=== PATIENT | male | born 1950 | race Caucasian/White ===

== ENCOUNTER 2023-03-12 19:14 | Inpatient (IN) | payer MEDICARE, BC ==
[~2023-03-12] VITALS: Ht 188 cm; Wt 85.0 kg
[2023-03-12 19:41] LABS: Urine Epithelial Cast None Seen /hpf (<5)
[2023-03-12 19:55] LABS: Urine Bacteria FEW /hpf (None Seen); Urine Blood 2+ /uL (Negative); Urine Clarity Clear (Clear); Urine Color Yellow (Yellow); Urine Protein, UAD TRACE (Negative); Urine Specific Gravity 1.007 (1.001-1.035); Urine Urobilinogen Normal (Negative); Urine WBC 76 /hpf (0 - 3); Urine pH 6.5 (5.0-8.0)
[2023-03-12] MEDS ORDERED: CEFTRIAXONE SODIUM 2 GM in D5W 5% 100 ML IV ONE (20:15)
[2023-03-12 20:58] LABS: Basophils # (auto) 0 10 ^3/uL (0-0.2); Basophils % (auto) 0.2 % (0.0-2.0); Eosinophils # (auto) 0 10 ^3/uL (0-0.8); Eosinophils % (auto) 0.2 % (0.0-7.0); Hematocrit 36.5 % (41.0-53.0); Lymphocytes # (auto) 1.1 10 ^3/uL (0.4-5.4); Lymphocytes % (auto) 13.4 % (10.0-50.0); Mean Corpuscular Hemoglobin 29.1 pg (28.0-32.0); Mean Corpuscular Hgb Conc. 32.9 g/dL (32.0-36.0); Mean Corpuscular Volume 88.5 fL (80.0-100.0); Monocytes # (auto) 0.8 10 ^3/uL (0-1.3); Neutrophils # (auto) 6.5 10 ^3/uL (1.6-8.6); Neutrophils % (auto) 77.2 % (37.0-80.0); Red Blood Cells 4.13 10^6/uL (4.5-5.90); Red Cell Distribution Width 14.8 % (11.8-14.3); White Blood Cell 8.4 10^3/uL (4.4-10.8)
[2023-03-12 21:20] LABS: Alanine Aminotransferase 23 U/L (7-40); Albumin 3.2 g/dL (3.2-4.8); Alkaline Phosphatase 77 U/L (46-116); Anion Gap 4 (5-15); Aspartate Aminotransferase 25 U/L (13-40); BUN/Creatinine Ratio 18.8 (10.0-20.0); Bilirubin, Total 0.5 mg/dL (0.2-1.0); Blood Urea Nitrogen 9 mg/dL (9-23); Calcium 8.5 mg/dL (8.7-10.4); Carbon Dioxide 30 mmol/L (20-30); Chloride 98 mmol/L (98-107); Glucose 173 mg/dL (74-106); Lipase 27 U/L (12-53); Potassium 3.4 mmol/L (3.5-5.1); Sodium 132 mmol/L (136-145); Total Protein 6.2 g/dL (5.7-8.2)
[2023-03-12] MEDS ORDERED: SODIUM CHLORIDE 0.9% 1,000 ML IV ONE (23:30)
[2023-03-12] MEDS ORDERED: HYDROmorphone HCL 2 MG/ML VL/or syr IM ONE (23:30)
[2023-03-13] VITALS (7 sets, daily range): BP systolic 99–113; BP diastolic 64–72; PULSE 66–93; RESP 16–22; TEMP 98–98.4; O2SAT 90–98
[2023-03-13] MEDS: POTASSIUM CHL 20MEQ/100ML 100 ML IV SCH ×2 (00:43→02:49)
[2023-03-13] MEDS ORDERED: ONDANSETRON HCL 4 MG/2 ML VIAL IV PRN (01:15)
[2023-03-13] MEDS ORDERED: VANCOMYCIN PER PHARMACY 0 MG IV SCH (01:30)
[2023-03-13] MEDS: FUROSEMIDE 40 MG/4 ML VIAL IV SCH ×3 (02:00→21:52)
[2023-03-13] MEDS ORDERED: VANCOMYCIN 1GM/200ML 200 ML IV ONE (02:00)
[2023-03-13 02:58] LABS: Erythrocyte Sedimentation Rate 53 mm/hr (0-20)
[2023-03-13] MEDS: HYDROmorphone HCL 2 MG/ML VL/or syr IV PRN ×2 (05:53→11:25)
[2023-03-13] MEDS: PIPERACILLIN-TAZOB 3.375GM 100 ML IV SCH ×4 (06:06→23:14)
[2023-03-13] MEDS: SODIUM CHLOR 0.9% PF (SALINE LOCK) 10ML VIAL/SYR IV SCH ×3 (06:06→21:52)
[2023-03-13] MEDS ORDERED: ASPI-543 PO (12:30)
[2023-03-13] MEDS ORDERED: HYDR-4798 PO (12:30)
[2023-03-13] MEDS ORDERED: APIX5TAB PO (12:30)
[2023-03-13] MEDS ORDERED: CLOP75TA28 PO (12:30)
[2023-03-13] MEDS ORDERED: AMIO200T33 PO (12:30)
[2023-03-13] MEDS ORDERED: CARV3.1240 PO (12:30)
[2023-03-13] MEDS ORDERED: ATOR40TA52 PO (12:30)
[2023-03-13] MEDS ORDERED: HYDROmorphone HCL 2 MG/ML VL/or syr IV PRN (13:15)
[2023-03-13] MEDS ORDERED: NICOTINE 21MG/24 HR TOPICAL PATCH TD ONE (13:15)
[2023-03-13] MEDS: HYDROcodone-ACET 5/325MG TAB PO PRN (14:15)
[2023-03-13] MEDS: VANCOMYCIN 750mg/150ml 250 ML IV SCH (14:59)
[2023-03-13] MEDS: ATORVASTATIN 20 MG TAB PO SCH (21:52)
[2023-03-13] MEDS: APIXABAN 5 MG TAB PO SCH (21:52)
[2023-03-13] MEDS: CARVEDILOL 3.125 MG TAB PO SCH (21:53)
[2023-03-14] VITALS (7 sets, daily range): BP systolic 91–125; BP diastolic 53–74; PULSE 67–83; RESP 16–20; TEMP 97.7–98.4; O2SAT 91–98
[2023-03-14] MEDS: VANCOMYCIN 750mg/150ml 250 ML IV SCH ×2 (03:00→14:58)
[2023-03-14] MEDS: PIPERACILLIN-TAZOB 3.375GM 100 ML IV SCH (05:47)
[2023-03-14] MEDS: SODIUM CHLOR 0.9% PF (SALINE LOCK) 10ML VIAL/SYR IV SCH ×3 (05:47→22:00)
[2023-03-14 06:38] LABS: Anion Gap 4 (5-15); Carbon Dioxide 35 mmol/L (20-30); Chloride 99 mmol/L (98-107); Potassium 3.3 mmol/L (3.5-5.1); Sodium 138 mmol/L (136-145)
[2023-03-14 06:39] LABS: Calcium 7.9 mg/dL (8.7-10.4)
[2023-03-14 06:44] LABS: BUN/Creatinine Ratio 14.6 (10.0-20.0); Blood Urea Nitrogen 7 mg/dL (9-23); Glucose 138 mg/dL (74-106)
[2023-03-14] MEDS: NICOTINE 21MG/24 HR TOPICAL PATCH TD SCH (10:00)
[2023-03-14] MEDS ORDERED: HYDROcodone-ACET 10/325MG TAB PO PRN (10:00)
[2023-03-14] MEDS: APIXABAN 5 MG TAB PO SCH ×2 (10:17→22:00)
[2023-03-14] MEDS: ASPirin 81 mg TAB PO SCH (10:17)
[2023-03-14] MEDS: AMIODARONE HCL 200 MG TAB PO SCH (10:18)
[2023-03-14] MEDS: CARVEDILOL 3.125 MG TAB PO SCH ×2 (10:19→22:00)
[2023-03-14] MEDS: CLOPIDOGREL BISULFATE 75 MG TAB PO SCH (10:19)
[2023-03-14] MEDS: FUROSEMIDE 40 MG/4 ML VIAL IV SCH ×2 (10:20→22:00)
[2023-03-14] MEDS ORDERED: OXYCODONE W/ ACETAMINOPHEN 5/325MG TABLET PO PRN (10:45)
[2023-03-14] MEDS: MEROPENEM 1GM IVPB 50 ML IV SCH (17:26)
[2023-03-14] MEDS: ATORVASTATIN 20 MG TAB PO SCH (22:00)
[2023-03-14] MEDS: VANCOMYCIN 1GM/200ML 200 ML IV SCH (22:00)
[2023-03-15] VITALS (7 sets, daily range): BP systolic 107–120; BP diastolic 58–74; PULSE 64–85; RESP 16–20; TEMP 97.4–98.2; O2SAT 93–99
[2023-03-15] MEDS: MEROPENEM 1GM IVPB 50 ML IV SCH ×2 (00:47→09:00)
[2023-03-15] MEDS: SODIUM CHLOR 0.9% PF (SALINE LOCK) 10ML VIAL/SYR IV SCH ×3 (06:00→21:59)
[2023-03-15] MEDS: VANCOMYCIN 1GM/200ML 200 ML IV SCH (06:00)
[2023-03-15 06:01] LABS: Basophils # (auto) 0 10 ^3/uL (0-0.2); Basophils % (auto) 0.2 % (0.0-2.0); Eosinophils # (auto) 0 10 ^3/uL (0-0.8); Eosinophils % (auto) 0.3 % (0.0-7.0); Hematocrit 36.9 % (41.0-53.0); Hemoglobin 12.1 g/dL (13.5-17.5); Lymphocytes # (auto) 1.3 10 ^3/uL (0.4-5.4); Lymphocytes % (auto) 19.3 % (10.0-50.0); Mean Corpuscular Hemoglobin 28.9 pg (28.0-32.0); Mean Corpuscular Hgb Conc. 32.8 g/dL (32.0-36.0); Monocytes # (auto) 0.6 10 ^3/uL (0-1.3); Monocytes % (auto) 8.7 % (0.0-12.0); Neutrophils # (auto) 4.9 10 ^3/uL (1.6-8.6); Neutrophils % (auto) 71.5 % (37.0-80.0); Nucleated Red Blood Cells % 0.1 %; Red Blood Cells 4.19 10^6/uL (4.5-5.90); Red Cell Distribution Width 15.1 % (11.8-14.3); White Blood Cell 6.9 10^3/uL (4.4-10.8)
[2023-03-15] MEDS: FUROSEMIDE 40 MG/4 ML VIAL IV SCH ×2 (09:44→21:59)
[2023-03-15] MEDS: ASPirin 81 mg TAB PO SCH ×2 (09:44→11:46)
[2023-03-15] MEDS: APIXABAN 5 MG TAB PO SCH ×3 (09:45→21:57)
[2023-03-15] MEDS: CARVEDILOL 3.125 MG TAB PO SCH ×3 (09:45→21:58)
[2023-03-15] MEDS: AMIODARONE HCL 200 MG TAB PO SCH ×2 (09:45→11:45)
[2023-03-15] MEDS: NICOTINE 21MG/24 HR TOPICAL PATCH TD SCH (09:45)
[2023-03-15] MEDS: CLOPIDOGREL BISULFATE 75 MG TAB PO SCH ×2 (09:45→11:46)
[2023-03-15] MEDS: ACETAMINOPHEN 325 MG TAB PO PRN (11:45)
[2023-03-15] MEDS ORDERED: levoFLOXacin 500MG 100 ML IV ONE (12:30)
[2023-03-15] MEDS ORDERED: CEFTRIAXONE SODIUM 2 GM in D5W 5% 100 ML IV ONE (16:00)
[2023-03-15] MEDS: ATORVASTATIN 20 MG TAB PO SCH (21:57)
[2023-03-16 05:00] VITALS: BP 112/70; PULSE 71; RESP 18; TEMP 97.7; O2SAT 100
[2023-03-16] MEDS: SODIUM CHLOR 0.9% PF (SALINE LOCK) 10ML VIAL/SYR IV SCH ×3 (06:09→22:02)
[2023-03-16 08:00] VITALS: BP 117/70; PULSE 76; PULSE 77; RESP 16; TEMP 98.1; O2SAT 98
[2023-03-16] MEDS ORDERED: levoFLOXacin 500MG 100 ML IV SCH (10:00)
[2023-03-16] MEDS: CLOPIDOGREL BISULFATE 75 MG TAB PO SCH (10:25)
[2023-03-16] MEDS: AMIODARONE HCL 200 MG TAB PO SCH (10:25)
[2023-03-16] MEDS: APIXABAN 5 MG TAB PO SCH ×2 (10:25→22:00)
[2023-03-16] MEDS: CARVEDILOL 3.125 MG TAB PO SCH ×2 (10:26→22:00)
[2023-03-16] MEDS: ASPirin 81 mg TAB PO SCH (10:30)
[2023-03-16] MEDS: FUROSEMIDE 40 MG/4 ML VIAL IV SCH ×2 (10:30→22:00)
[2023-03-16] MEDS: NICOTINE 21MG/24 HR TOPICAL PATCH TD SCH (10:30)
[2023-03-16] MEDS: CEFTRIAXONE SODIUM 2 GM in D5W 5% 100 ML IV SCH (11:33)
[2023-03-16 12:00] VITALS: BP 117/66; PULSE 84; RESP 16; TEMP 98.3; O2SAT 98
[2023-03-16 12:02] LABS: INR 1.28 (0.9-1.15); Partial Thromboplastin Time 43.5 SEC (24.5-34.5); Prothrombin Time 13.2 sec (9.3-11.8)
[2023-03-16 14:30] LABS: COVID19 ANTIGEN SOFIA FIA NEGATIVE (NEGATIVE)
[2023-03-16 16:00] VITALS: BP 120/71; PULSE 70; RESP 16; TEMP 98.3; O2SAT 98
[2023-03-16 20:00] VITALS: PULSE 67; PULSE 72; RESP 14; O2SAT 99
[2023-03-16 22:00] VITALS: BP 115/72; PULSE 72; TEMP 97.9; O2SAT 99
[2023-03-16] MEDS: ATORVASTATIN 20 MG TAB PO SCH (22:00)
[2023-03-17] VITALS (8 sets, daily range): BP systolic 110–120; BP diastolic 64–73; PULSE 63–91; RESP 18–19; TEMP 97.5–98.8; O2SAT 91–100
[2023-03-17] MEDS: ACETAMINOPHEN 325 MG TAB PO PRN ×2 (04:24→10:46)
[2023-03-17] MEDS: SODIUM CHLOR 0.9% PF (SALINE LOCK) 10ML VIAL/SYR IV SCH ×3 (06:00→22:19)
[2023-03-17] MEDS: CEFTRIAXONE SODIUM 2 GM in D5W 5% 100 ML IV SCH (08:54)
[2023-03-17] MEDS: FUROSEMIDE 40 MG/4 ML VIAL IV SCH ×2 (08:55→22:00)
[2023-03-17] MEDS: ASPirin 81 mg TAB PO SCH (08:56)
[2023-03-17] MEDS: NICOTINE 21MG/24 HR TOPICAL PATCH TD SCH (08:56)
[2023-03-17] MEDS: AMIODARONE HCL 200 MG TAB PO SCH (08:57)
[2023-03-17] MEDS: CLOPIDOGREL BISULFATE 75 MG TAB PO SCH (08:57)
[2023-03-17] MEDS: APIXABAN 5 MG TAB PO SCH ×2 (08:57→22:18)
[2023-03-17] MEDS: CARVEDILOL 3.125 MG TAB PO SCH ×2 (08:58→22:19)
[2023-03-17 11:15] LABS: Basophils # (auto) 0 10 ^3/uL (0-0.2); Basophils % (auto) 0.3 % (0.0-2.0); Eosinophils # (auto) 0 10 ^3/uL (0-0.8); Eosinophils % (auto) 0.5 % (0.0-7.0); Hematocrit 39.1 % (41.0-53.0); Hemoglobin 12.8 g/dL (13.5-17.5); Lymphocytes # (auto) 1.1 10 ^3/uL (0.4-5.4); Lymphocytes % (auto) 16.6 % (10.0-50.0); Mean Corpuscular Hemoglobin 28.7 pg (28.0-32.0); Mean Corpuscular Hgb Conc. 32.7 g/dL (32.0-36.0); Mean Corpuscular Volume 87.8 fL (80.0-100.0); Monocytes # (auto) 0.6 10 ^3/uL (0-1.3); Monocytes % (auto) 8.6 % (0.0-12.0); Nucleated Red Blood Cells % 0.2 %; Red Blood Cells 4.46 10^6/uL (4.5-5.90); Red Cell Distribution Width 15.3 % (11.8-14.3); White Blood Cell 6.7 10^3/uL (4.4-10.8)
[2023-03-17 11:22] LABS: Chloride 101 mmol/L (98-107); Potassium 3.8 mmol/L (3.5-5.1); Sodium 136 mmol/L (136-145)
[2023-03-17 11:23] LABS: Anion Gap 2 (5-15); Calcium 8.7 mg/dL (8.5-10.1); Carbon Dioxide 33 mmol/L (20-30)
[2023-03-17 11:25] LABS: Base Excess 8.2 mmol/L (-2.0-2.0)
[2023-03-17 11:28] LABS: Glucose 260 mg/dL (74-106)
[2023-03-17 11:29] LABS: BUN/Creatinine Ratio 11.7 (10.0-20.0); Blood Urea Nitrogen 7 mg/dL (9-23)
[2023-03-17] MEDS: HYDROcodone-ACET 5/325MG TAB PO PRN ×2 (15:48→22:25)
[2023-03-17] MEDS ORDERED: ceFAZolin 1GM/50ML 50 ML IV ONE (16:30)
[2023-03-17] MEDS: ATORVASTATIN 20 MG TAB PO SCH (22:00)
[2023-03-18 05:00] VITALS: BP 123/54; PULSE 72; RESP 18; TEMP 98.2; O2SAT 95
[2023-03-18] MEDS: SODIUM CHLOR 0.9% PF (SALINE LOCK) 10ML VIAL/SYR IV SCH ×3 (06:13→21:42)
[2023-03-18 08:40] VITALS: BP 112/68; PULSE 76; RESP 16; TEMP 97.8; O2SAT 93
[2023-03-18] MEDS: CLOPIDOGREL BISULFATE 75 MG TAB PO SCH (08:52)
[2023-03-18] MEDS: HYDROcodone-ACET 5/325MG TAB PO PRN (08:52)
[2023-03-18] MEDS: FUROSEMIDE 40 MG/4 ML VIAL IV SCH ×2 (08:54→21:42)
[2023-03-18] MEDS: CARVEDILOL 3.125 MG TAB PO SCH ×2 (08:54→21:43)
[2023-03-18] MEDS: ASPirin 81 mg TAB PO SCH (08:55)
[2023-03-18] MEDS: AMIODARONE HCL 200 MG TAB PO SCH (09:01)
[2023-03-18] MEDS: APIXABAN 5 MG TAB PO SCH ×2 (09:01→21:42)
[2023-03-18] MEDS: NICOTINE 21MG/24 HR TOPICAL PATCH TD SCH (09:03)
[2023-03-18] MEDS: CEFTRIAXONE SODIUM 2 GM in D5W 5% 100 ML IV SCH (09:03)
[2023-03-18] MEDS: HYDROcodone-ACET 10/325MG TAB PO PRN ×2 (10:51→17:47)
[2023-03-18 12:35] VITALS: BP 107/62; PULSE 69; RESP 16; TEMP 97.8; O2SAT 93
[2023-03-18 16:35] VITALS: BP 107/58; PULSE 59; RESP 16; TEMP 97.8; O2SAT 94
[2023-03-18] MEDS: ATORVASTATIN 20 MG TAB PO SCH (21:42)
[2023-03-18] MEDS: LACTULOSE 20Gm/30ML SOLN PO SCH (21:42)
[2023-03-18 22:00] VITALS: BP 108/65; PULSE 63; RESP 18; TEMP 98.5; O2SAT 94
[2023-03-19 05:00] VITALS: BP 124/60; PULSE 71; RESP 18; TEMP 98.1; O2SAT 95
[2023-03-19] MEDS: SODIUM CHLOR 0.9% PF (SALINE LOCK) 10ML VIAL/SYR IV SCH ×3 (05:36→21:50)
[2023-03-19] MEDS: HYDROcodone-ACET 10/325MG TAB PO PRN ×5 (05:42→22:30)
[2023-03-19 06:59] LABS: Basophils # (auto) 0 10 ^3/uL (0-0.2); Basophils % (auto) 0.4 % (0.0-2.0); Eosinophils # (auto) 0 10 ^3/uL (0-0.8); Eosinophils % (auto) 0.3 % (0.0-7.0); Hematocrit 38.7 % (41.0-53.0); Hemoglobin 12.6 g/dL (13.5-17.5); Lymphocytes # (auto) 1.5 10 ^3/uL (0.4-5.4); Lymphocytes % (auto) 22.3 % (10.0-50.0); Mean Corpuscular Hemoglobin 28.7 pg (28.0-32.0); Mean Corpuscular Hgb Conc. 32.5 g/dL (32.0-36.0); Mean Corpuscular Volume 88.6 fL (80.0-100.0); Monocytes # (auto) 0.5 10 ^3/uL (0-1.3); Monocytes % (auto) 7.8 % (0.0-12.0); Neutrophils # (auto) 4.5 10 ^3/uL (1.6-8.6); Neutrophils % (auto) 69.2 % (37.0-80.0); Red Blood Cells 4.37 10^6/uL (4.5-5.90); White Blood Cell 6.5 10^3/uL (4.4-10.8)
[2023-03-19 07:02] LABS: Chloride 104 mmol/L (98-107); Potassium 3.6 mmol/L (3.5-5.1); Sodium 140 mmol/L (136-145)
[2023-03-19 07:03] LABS: Anion Gap 3 (5-15); Carbon Dioxide 33 mmol/L (20-30)
[2023-03-19 07:08] LABS: BUN/Creatinine Ratio 9.8 (10.0-20.0); Blood Urea Nitrogen 5 mg/dL (9-23); Glucose 164 mg/dL (74-106)
[2023-03-19 09:51] VITALS: BP 126/75; PULSE 70; RESP 18; TEMP 97.5; O2SAT 95
[2023-03-19] MEDS: FUROSEMIDE 40 MG/4 ML VIAL IV SCH ×2 (10:00→21:50)
[2023-03-19] MEDS ORDERED: DEXTROSE (50%) 50ML SYRG IV PRN (10:30)
[2023-03-19] MEDS: CEFTRIAXONE SODIUM 2 GM in D5W 5% 100 ML IV SCH (10:33)
[2023-03-19] MEDS: LACTULOSE 20Gm/30ML SOLN PO SCH (10:34)
[2023-03-19] MEDS: ASPirin 81 mg TAB PO SCH (10:34)
[2023-03-19] MEDS: AMIODARONE HCL 200 MG TAB PO SCH (10:35)
[2023-03-19] MEDS: CLOPIDOGREL BISULFATE 75 MG TAB PO SCH (10:37)
[2023-03-19] MEDS: APIXABAN 5 MG TAB PO SCH ×2 (10:37→21:51)
[2023-03-19] MEDS: CARVEDILOL 3.125 MG TAB PO SCH ×2 (10:37→21:50)
[2023-03-19] MEDS: NICOTINE 21MG/24 HR TOPICAL PATCH TD SCH (10:37)
[2023-03-19] MEDS: ACCU-CHEK COMFORT CURVE STRIP VI SCH ×3 (11:30→21:51)
[2023-03-19] MEDS: InsuLIN REG 1unit/0.01ml Soln (100units/ml) SC SCH ×3 (12:46→22:30)
[2023-03-19 12:57] VITALS: BP 125/72; PULSE 69; RESP 18; TEMP 97.8; O2SAT 96
[2023-03-19] MEDS ORDERED: ceFAZolin 2 GM/D5W100ml 100 ML IV ONE (14:30)
[2023-03-19 16:51] VITALS: BP 134/79; PULSE 79; RESP 19; TEMP 98.1; O2SAT 94
[2023-03-19] MEDS: ATORVASTATIN 20 MG TAB PO SCH (21:51)
[2023-03-19] MEDS: ceFAZolin 2 GM/D5W100ml 100 ML IV SCH (21:51)
[2023-03-19 22:00] VITALS: BP 123/71; PULSE 80; RESP 18; TEMP 98.1; O2SAT 93
[2023-03-20] MEDS: HYDROcodone-ACET 10/325MG TAB PO PRN (02:39)
[2023-03-20] MEDS: InsuLIN REG 1unit/0.01ml Soln (100units/ml) SC SCH (05:21)
[2023-03-20] MEDS: ceFAZolin 2 GM/D5W100ml 100 ML IV SCH (05:21)
[2023-03-20] MEDS: ACCU-CHEK COMFORT CURVE STRIP VI SCH (05:21)
[2023-03-20] MEDS: SODIUM CHLOR 0.9% PF (SALINE LOCK) 10ML VIAL/SYR IV SCH (05:21)
[2023-03-20] MEDS: ACETAMINOPHEN 325 MG TAB PO PRN (07:49)
[2023-03-20] MEDS: LACTULOSE 20Gm/30ML SOLN PO SCH (10:00)
[2023-03-20] MEDS: APIXABAN 5 MG TAB PO SCH (10:00)
[2023-03-20] MEDS: AMIODARONE HCL 200 MG TAB PO SCH (10:00)
[2023-03-20] MEDS: CARVEDILOL 3.125 MG TAB PO SCH (10:00)
[2023-03-20] MEDS: FUROSEMIDE 40 MG/4 ML VIAL IV SCH (10:00)
[2023-03-20] MEDS: ASPirin 81 mg TAB PO SCH (10:00)
[2023-03-20] MEDS: CLOPIDOGREL BISULFATE 75 MG TAB PO SCH (10:00)
[2023-03-20] MEDS: NICOTINE 21MG/24 HR TOPICAL PATCH TD SCH (10:00)
== END 2023-03-20 11:02 | disposition left against medical advice (07) | DRG 542 ==
LOC: EDBD 19:14 → ER 19:14 → TELE-EAST 03-13 01:18 → TELE 03-13 01:18 → TELE-EAST 03-13 04:15
PROVIDERS: ADMIT Internal Medicine; ATTEND Internal Medicine Pulmonary Disease
PROC: 02HV33Z Insertion of Infusion Device into Superior Vena Cava, Percutaneous Approach (ICD-10-PCS; principal; 2023-03-17)
PROC: B548ZZA Ultrasonography of Superior Vena Cava, Guidance (ICD-10-PCS; 2023-03-17)
DX: M48.56XA Collapsed vertebra, not elsewhere classified, lumbar region, initial encounter for fracture (principal); I50.21 Acute systolic (congestive) heart failure; E87.1 Hypo-osmolality and hyponatremia; N39.0 Urinary tract infection, site not specified; R78.81 Bacteremia; M46.26 Osteomyelitis of vertebra, lumbar region; M46.46 Discitis, unspecified, lumbar region; Z20.822 Contact with and (suspected) exposure to COVID-19; E87.6 Hypokalemia; G89.29 Other chronic pain; I48.91 Unspecified atrial fibrillation; M47.816 Spondylosis without myelopathy or radiculopathy, lumbar region; Z60.2 Problems related to living alone; R79.89 Other specified abnormal findings of blood chemistry; Z53.29 Procedure and treatment not carried out because of patient's decision for other reasons; B95.61 Methicillin susceptible Staphylococcus aureus infection as the cause of diseases classified elsewhere; Z88.0 Allergy status to penicillin; Z88.8 Allergy status to other drugs, medicaments and biological substances; I25.2 Old myocardial infarction; Z95.5 Presence of coronary angioplasty implant and graft; Z91.148 Patient's other noncompliance with medication regimen for other reason; Z79.899 Other long term (current) drug therapy
CPT/HCPCS: 36415; 36569; 36600; 71045; 72131; 80048; 80053; 80202; 81001; 82565; 82805; 82962; 83036; 83605; 83690; 83880; 84484; 85025; 85610; 85652; 85730; 86141; 87040; 87077; 87086; 87088; 87186; 87426; 93005; 93306; 96365; 96367; 96372; 97110; 97116; 97163; 97530; G0378; J0696; J1815; J1956; J2185; J2543; J3480; J7060